=== PATIENT | male | born 1995 | race Caucasian/White ===

== ENCOUNTER 2017-01-30 14:52 | Emergency (ER) | payer OTHER ==
[~2017-01-30] VITALS: Ht 185.4 cm; Wt 98.8 kg
[2017-01-30 14:56] VITALS: TEMP 36.8; Ht 185.4 cm; Wt 98.8 kg
[2017-01-30] MEDS ORDERED: ONDANSETRON INJ 2 MG/ML 2 ML VIAL IV STA (15:32)
[2017-01-30] MEDS ORDERED: VENL75CA73 PO (15:34)
[2017-01-30 16:00] LABS: BASO % 0.3 %; BASO ABS # 0.02 K/uL (0-0.2); COMPLETE YES; HEMATOCRIT 45.8 % (42-52); IG% 0.4 %; LYMPH % 15.4 %; LYMPH ABS # 1.12 K/uL (1.2-3.4); MEAN CELL VOLUME 83.9 fL (80-100); MEAN CORPUSCULAR HEMOGLOBIN 28.9 pg (25-34); MEAN CORPUSCULAR HGB CONC 34.5 g/dl (32-36); MEAN PLATELET VOLUME 10.4 fL (7.4-10.4); MONO % 7.8 %; NEUT % 76.1 %; PLATELET COUNT 207 K/uL (130-400); RED BLOOD COUNT 5.46 M/uL (4.7-6.1); WHITE BLOOD COUNT 7.28 K/uL (4.8-10.8)
[2017-01-30 16:16] LABS: BUN/CREATININE RATIO 12.3 (10-20); CALCIUM 9.8 mg/dl (8.5-10.1); POTASSIUM 4.4 mmol/L (3.5-5.1)
[2017-01-30 16:46] LABS: URINE APPEARANCE CLEAR (CLEAR); URINE COLOR YELLOW; URINE SPECIFIC GRAVITY 1.023 (1.000-1.030)
[2017-01-30 16:47] LABS: URINE BILIRUBIN NEG (NEG); URINE NITRITE NEG (NEG); UROBILINOGEN NEG (NEG)
[2017-01-30 16:49] LABS: MANUAL MICROSCOPIC REQUIRED? NO; REVIEW REQ? NO; SULFASALICYLIC ACID POS (NEG)
[2017-01-30] MEDS ORDERED: ONDA4TAB10 SL (18:10)
[2017-01-30 18:36] VITALS: BP 146/73; PULSE 88; O2SAT 98
--- NOTE | 2017-01-30 23:02 | EMERGENCY ROOM VISIT NOTE ---
ED Visit Note First contact with patient: 15:06 Chief Complaint: I'm vomiting and having diarrhea. History of Present Illness: Mr. James is a 21 year-old white male ambulates into the ED accompanied by female friend complaining of vomiting and diarrhea. Historically patient denies any previous gastrointestinal disorders or abdominal surgeries. Patient reports acute onset of nausea and vomiting that started approximately 7 hours ago. He reports since that time his symptoms have been constant. He reports she's had 10 bilious episodes of vomiting since the onset of the symptoms. Additionally he reports she's had 4 episodes of light brown watery stools. He reports his symptoms worsen when he eats or drinks anything. He has not identified any alleviating factors related to the symptoms. Associated with his symptoms he does report he says been having chills but no leo fevers , lightheadedness and dizziness. Additionally he reports he was drinking alcohol last night. He has no close sick contacts with similar symptoms. Patient denies sweats, skin eruptions, skin color changes, upper respiratory tract symptoms, shortness of breath, chest pain, constipation, rectal bleeding , black/tarry stools, urinary symptoms, hematuria, back/flank pain. Review of Systems: As noted above in history of present illness. All body systems were reviewed and found to be negative as noted above. Past Medical History: Patient denies. Current Medications: Venlafaxine. Allergies to Medications: Patient denies. Social History: Patient is currently in University student; he feels safe in his home environment; he denies tobacco use and admits to alcohol use. Physical Examination: Vital Signs: Date Time Temp Pulse Resp B/P (MAP) Pulse Ox O2 Delivery O2 Flow Rate FiO2 01/30/17 18:36 88 16 146/73 98 01/30/17 16:45 72 16 115/76 98 Room Air 01/30/17 15:46 95 16 144/96 98 Room Air 92 144/92 87 156/96 01/30/17 14:56 36.8 105 18 132/88 94 Room Air GENERAL: 21-year-old male in mild distress due to symptoms, nontoxic-appearing, afebrile and hemodynamically stable. NEUROLOGICAL: Awake, alert and oriented to person, place and time. Answering questions appropriately and following commands. Normal gait. Good hand eye coordination. SKIN: Warm, dry and pink. No soft tissue eruptions or trauma noted. HEENT: Atraumatic and normocephalic. PERRLA. Sclera white and conjunctiva pink. Oral cavity moist and pink. Pharynx is nonerythematous or edematous. BACK: No tenderness over the bony spine. No CVA tenderness. THORAX: Lungs sounds are clear to auscultation and equal bilaterally with symmetrical chest wall. No wheezing, rales or rhonchi. No crepitus, tenderness , subcutaneous air or deformities noted. ABDOMEN: Flat, soft and nontender. Positive bowel sounds in all quadrants. No guarding, rigidity or organomegaly. EXTREMITIES: Moves all extremities well on command and with purpose. All distal neurovascular statuses are intact and equal bilaterally. ED Course: Patient is assessed as noted above. Patient's medication list was reviewed. Laboratory Testing: Test 01/30/17 15:40 01/30/17 16:32 Range/Units White Blood Count 7.28 4.8-10.8 K/uL Red Blood Count 5.46 4.7-6.1 M/uL Hemoglobin 15.8 14.0-18.0 g/dL Hematocrit 45.8 42-52 % Mean Corpuscular Volume 83.9 80-100 fL Mean Corpuscular Hemoglobin 28.9 25-34 pg Mean Corpuscular Hemoglobin Concent 34.5 32-36 g/dl Platelet Count 207 130-400 K/uL Mean Platelet Volume 10.4 7.4-10.4 fL Neutrophils (%) (Auto) 76.1 % Lymphocytes (%) (Auto) 15.4 % Monocytes (%) (Auto) 7.8 % Eosinophils (%) (Auto) 0.0 % Basophils (%) (Auto) 0.3 % Neutrophils # (Auto) 5.54 1.4-6.5 K/uL Lymphocytes # (Auto) 1.12 1.2-3.4 K/uL Monocytes # (Auto) 0.57 0.11-0.59 K/uL Eosinophils # (Auto) 0.00 0-0.5 K/uL Basophils # (Auto) 0.02 0-0.2 K/uL RDW Standard Deviation 41.1 36.4-46.3 fL RDW Coefficient of Variation 13.5 11.5-14.5 % Immature Granulocyte % (Auto) 0.4 % Immature Granulocyte # (Auto) 0.03 0.00-0.02 K/uL Sodium Level 140 136-145 mmol/L Potassium Level 4.4 3.5-5.1 mmol/L Chloride Level 106 98-107 mmol/L Carbon Dioxide Level 27 21-32 mmol/L Anion Gap 7.0 3-11 mmol/L Blood Urea Nitrogen 12 7-18 mg/dl Creatinine 1.00 0.60-1.40 mg/dl Est Creatinine Clear Calc Drug Dose 145.7 ml/min Estimated GFR () 125.0 Estimated GFR (Non- 107.9 BUN/Creatinine Ratio 12.3 10-20 Random Glucose 91 70-99 mg/dl Calcium Level 9.8 8.5-10.1 mg/dl Total Bilirubin 0.5 0.2-1 mg/dl Direct Bilirubin 0.1 0-0.2 mg/dl Aspartate Amino Transf (AST/SGOT) 74 15-37 U/L Alanine Aminotransferase (ALT/SGPT) 197 12-78 U/L Alkaline Phosphatase 76 45-117 U/L Total Protein 8.7 6.4-8.2 gm/dl Albumin 5.0 3.4-5.0 gm/dl Lipase 121 73-393 U/L Urine Color YELLOW Urine Appearance CLEAR CLEAR Urine pH 8.0 4.5-7.5 Urine Specific Marcy 1.023 1.000-1.030 Urine Protein 2+ NEG Urine Glucose (UA) NEG NEG Urine Ketones NEG NEG Urine Occult Blood NEG NEG Urine Nitrite NEG NEG Urine Bilirubin NEG NEG Urine Urobilinogen NEG NEG Urine Leukocyte Esterase NEG NEG Urine WBC (Auto) 1-5 0-5 /hpf Urine RBC (Auto) 5-10 0-4 /hpf Urine Hyaline Casts (Auto) 0 0-5 /lpf Urine Epithelial Cells (Auto) 5-10 0-5 /lpf Urine Bacteria (Auto) NEG NEG Patient was initially hydrated with lactated Ringer's and given 4 mg of Zofran IV. Patient was reassessed multiple times during his stay in the emergency department. Patient was educated about today's findings and instructed on his treatment plan ; he verbalized understanding and agreement with this plan. Clinical Impression: Vomiting. Elevated liver enzymes. Decision-Making: Initially my differential diagnosis I considered hepatitis, gastritis, pancreatitis, urinary tract infection, electrolyte abnormality and other causes. Disposition: Patient discharged home in stable condition accompanied by female friends; prior to departure he was reassessed and subjectively reported he was feeling much better. Additionally patient was trialed on juice and crackers and had no return of nausea or vomiting. Plan: Patient is encouraged to stay well-hydrated with clear fluids per Patient was prescribed Zofran 4 mg every 6 hours as needed for nausea or vomiting. Patient was encouraged to avoid alcohol use and acetaminophen because of his elevated liver enzymes. Patient was encouraged to follow-up with [facility] for recheck and also reevaluation of his liver enzymes. Patient was encouraged return ED for worsening nausea/vomiting, bloody stools, bloody vomitus, fevers, abdominal pain or any new/concerning symptoms.
== END 2017-01-30 18:37 | disposition home or self-care (01) ==
LOC: C.EDB 14:53 → C.EDC 18:37
DX: R11.2 Nausea with vomiting, unspecified (principal); R74.8 Abnormal levels of other serum enzymes; R19.7 Diarrhea, unspecified

== ENCOUNTER 2017-04-25 00:48 | Emergency (ER) | payer OTHER ==
[~2017-04-25] VITALS: Ht 185.4 cm; Wt 104.3 kg
[~2017-04-25 00:48] MED LIST: ONDA4TAB10 SL; VENL75CA73 PO
[2017-04-25 00:52] VITALS: TEMP 37.3; Ht 185.4 cm; Wt 104.3 kg
[2017-04-25 02:25] LABS: CALCIUM 9.1 mg/dl (8.5-10.1); CREATININE 1.06 mg/dl (0.60-1.40); POTASSIUM 4.2 mmol/L (3.5-5.1)
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
[2017-04-25 04:07] VITALS: BP 138/84; PULSE 88; O2SAT 96
== END 2017-04-25 04:09 | disposition home or self-care (01) ==
LOC: EDBD 00:48 → C.EDB 00:49
DX: S61.411A Laceration without foreign body of right hand, initial encounter (principal); S61.214A Laceration without foreign body of right ring finger without damage to nail, initial encounter; S61.215A Laceration without foreign body of left ring finger without damage to nail, initial encounter; S51.811A Laceration without foreign body of right forearm, initial encounter; W22.8XXA Striking against or struck by other objects, initial encounter; F41.9 Anxiety disorder, unspecified; F32.9 Major depressive disorder, single episode, unspecified